=== PATIENT | female | born 1960 | race African-American/Black ===

== ENCOUNTER 2019-04-27 12:10 | Day surgery (SDC) | payer OTHER ==
[2019-04-24 16:53] VITALS: BMI 25.0
[2019-04-27 14:30] VITALS: BP 116/68; PULSE 76
[2019-04-27 14:31] VITALS: TEMP 98
== END 2019-04-27 14:00 | disposition home or self-care (01) ==
LOC: JASU-ENDO 12:10
PROVIDERS: ATTEND Internal Medicine Gastroenterology
PROC: 0DJD8ZZ Inspection of Lower Intestinal Tract, Via Natural or Artificial Opening Endoscopic (ICD-10-PCS; principal; 2019-04-27 13:00)
DX: Z12.11 Encounter for screening for malignant neoplasm of colon (principal); K64.8 Other hemorrhoids